=== PATIENT | female | born 1975 | race Asian ===

== ENCOUNTER 2017-01-13 21:37 | Emergency (ER) | payer MEDICAID ==
[~2017-01-13] VITALS: Ht 160 cm; Wt 71.3 kg
[2017-01-13 21:46] VITALS: BP 144/86
[2017-01-13] MEDS ORDERED: SERT100T5 PO (22:35)
[2017-01-13] MEDS ORDERED: TRAZ100T15 PO (22:35)
[2017-01-13] MEDS ORDERED: HYDROcodone/APAP 5/325 TABLET ONE (22:36)
[2017-01-13] MEDS ORDERED: HYDROcodone/APAP 5/325 TABLET PO PRN (23:00)
== END 2017-01-14 00:46 | disposition home or self-care (01) ==
LOC: ED 01-14 00:37
DX: S62.316A Displaced fracture of base of fifth metacarpal bone, right hand, initial encounter for closed fracture (principal); W51.XXXA Accidental striking against or bumped into by another person, initial encounter; Y93.89 Activity, other specified; Y92.89 Other specified places as the place of occurrence of the external cause; Y99.8 Other external cause status
CPT/HCPCS: 29125

== ENCOUNTER 2018-02-20 23:31 | Observation (INO) | payer MEDICAID ==
[~2018-02-20] VITALS: Ht 160 cm; Wt 77.4 kg
[~2018-02-20 23:31] MED LIST: SERT100T5 PO; TRAZ100T15 PO
[2018-02-21] MEDS ORDERED: KETOROLAC 30 MG/1 ML IVPush ONE
[2018-02-21] MEDS ORDERED: SODIUM CHLORIDE FLUSH 10ML SYR IVF ONE
[2018-02-21] MEDS ORDERED: MORPHINE SULFATE 4 MG/ML, 1ML IVPush PRN
[2018-02-21] MEDS ORDERED: PROMETHAZINE 25 MG/ML, 1ML IM ONE
[2018-02-21 00:03] LABS: ALANINE AMINOTRANSFERASE 15 U/L (12-78); ALBUMIN 3.7 g/dL (3.4-5.0); ANION GAP 10 mmol/L (5-15); CALCIUM 8.4 mg/dL (8.5-10.1); CHLORIDE 109 mmol/L (98-107)
[2018-02-21 00:08] LABS: ALKALINE PHOSPHATASE 59 U/L (45-117); BILIRUBIN,TOTAL 0.6 mg/dL (0.2-1.0); TOTAL PROTEIN 7.3 g/dL (6.4-8.2)
[2018-02-21 00:12] LABS: BASOPHILS # (AUTO) 0.05 x10^3/uL (0-0.1); BASOPHILS % (AUTO) 0 % (0-1); EOSINOPHILS # (AUTO) 0.01 x10^3/uL (0-0.4); EOSINOPHILS % (AUTO) 0 % (1-7); LYMPHOCYTES # (AUTO) 0.83 x10^3/uL (1-3.4); LYMPHOCYTES % (AUTO) 7 % (22-44); MD NO; MEAN CORPUSCULAR HEMOGLOBIN 24.5 pg (27.0-34.8); MEAN CORPUSCULAR HGB CONC 31.9 g/dL (32.4-35.8); MEAN CORPUSCULAR VOLUME 76.9 fL (80-100); MEAN PLATELET VOLUME 8.3 fL (7.4-10.4); MONOCYTES # (AUTO) 0.46 x10^3/uL (0.2-0.8); MONOCYTES % (AUTO) 4 % (2-9); NEUTROPHILS # (AUTO) 10.55 x10^3/uL (1.8-6.8); NEUTROPHILS % (AUTO) 89 % (42-75); PLATELET COUNT 379 x10^3/uL (130-400); RED BLOOD COUNT 4.68 x10^6/uL (3.82-5.3); RED CELL DISTRIBUTION WIDTH 16.7 % (9.6-15.2)
[2018-02-21] MEDS ORDERED: PROMETHAZINE 25 MG/ML, 1ML ONE (00:28)
[2018-02-21] MEDS ORDERED: KETOROLAC 30 MG/1 ML ONE ×2 (00:29→06:30)
[2018-02-21] MEDS ORDERED: OMNIPAQUE 350 MG/ML, 100ML BOTTLE ONE (02:29)
[2018-02-21] MEDS ORDERED: SODIUM CHLORIDE 0.9% 1,000ML IVBOLUS ONE (02:30)
[2018-02-21 02:49] LABS: MICROSCOPIC AUTO
[2018-02-21 02:56] LABS: CULTURE INDICATED? NO
[2018-02-21] MEDS ORDERED: CEFOTETAN PMX 1GM/50ML 50 ML IV ONE (03:00)
[2018-02-21] MEDS ORDERED: SODIUM CHLORIDE 0.9% 1,000 ML IV ONE (03:08)
[2018-02-21] MEDS ORDERED: SODIUM CHLORIDE FLUSH 10ML SYR IVF PRN (03:30)
[2018-02-21] MEDS ORDERED: HYDROmorphone 2 MG/ML, 1ML IVPush PRN (03:30)
[2018-02-21] MEDS ORDERED: ONDANSETRON 2MG/ML, 2ML IVPush PRN (03:30)
[2018-02-21] MEDS ORDERED: PROMETHAZINE 25 MG/ML, 1ML IM PRN (03:30)
[2018-02-21] MEDS ORDERED: BUPIVACAINE/PF 0.5% ONE (03:36)
[2018-02-21] MEDS ORDERED: CEFOTETAN PMX 1GM/50ML 50 ML ONE (03:37)
[2018-02-21] MEDS ORDERED: EPINEPHRINE 1 MG/ML, 1ML ONE (03:37)
[2018-02-21] MEDS ORDERED: TRAZ300T2 PO (03:45)
[2018-02-21] MEDS ORDERED: FLUO20CA19 PO (03:45)
[2018-02-21 04:34] VITALS: BP 132/69
[2018-02-21] MEDS ORDERED: MIDAZOLAM 1 MG/ML, 2ML ONE ×2 (05:57→06:46)
[2018-02-21] MEDS ORDERED: FENTANYL PF 100 MCG/2ML ONE (05:58)
[2018-02-21] MEDS ORDERED: BUPIVACAINE/PF-EPI 0.5% 1:200K IM ONE (06:21)
[2018-02-21] MEDS ORDERED: EPHEDRINE 50 MG/ML, 1ML IVPush PRN (06:30)
[2018-02-21] MEDS ORDERED: GLYCOPYRROLATE 0.2MG/1ML, 5ML ONE (06:30)
[2018-02-21] MEDS ORDERED: ROCURONIUM 10 MG/ML,10ML ONE (06:30)
[2018-02-21] MEDS ORDERED: LABETALOL 5MG/ML, 20ML IV PRN (06:30)
[2018-02-21] MEDS ORDERED: NEOSTIGMINE 1 MG/ML, 10ML ONE (06:30)
[2018-02-21] MEDS ORDERED: ONDANSETRON ODT 8 MG PO PRN (06:30)
[2018-02-21] MEDS ORDERED: HALOPERIDOL 5 MG/ML IV PRN (06:30)
[2018-02-21] MEDS ORDERED: HYDROmorphone 1 MG/ML, 1ML IV PRN (06:30)
[2018-02-21] MEDS ORDERED: HYDROcodone/APAP 7.5-325MG/15ML UDC PO PRN (06:30)
[2018-02-21] MEDS ORDERED: CEFOTETAN 2 GM ONE (06:30)
[2018-02-21] MEDS ORDERED: FENTANYL PF 100 MCG/2ML IV PRN (06:30)
[2018-02-21] MEDS ORDERED: PROPOFOL 10 MG/ML, 20ML ONE (06:30)
[2018-02-21] MEDS ORDERED: OXYcodone 5 MG/5 ML ORAL.SOL UDC PO PRN (06:30)
[2018-02-21] MEDS ORDERED: ALBUTEROL SULFATE 2.5 MG/3 ML NPPB PRN (06:30)
[2018-02-21] MEDS ORDERED: MEPERIDINE/PF 25MG/0.5ML IVPush PRN (06:30)
[2018-02-21] MEDS ORDERED: DEXAMETHASONE 4 MG/ML, 1ML ONE (06:30)
[2018-02-21] MEDS ORDERED: hydrALAzine 20 MG/ML, 1ML IV PRN (06:30)
[2018-02-21] MEDS ORDERED: ACETAMINOPHEN 325 MG TABLET PO PRN (06:30)
[2018-02-21] MEDS ORDERED: SUCCINYLCHOLINE 20 MG/ML, 10ML ONE (06:30)
[2018-02-21] MEDS ORDERED: PROMETHAZINE 25 MG/ML, 1ML IV PRN (06:30)
[2018-02-21] MEDS: MIDAZOLAM 1 MG/ML, 2ML IV PRN ×2 (06:35→06:50)
[2018-02-21] MEDS ORDERED: OXYcodone 5 MG/5 ML ORAL.SOL UDC ONE (06:46)
[2018-02-21 08:30] VITALS: BP 126/84
[2018-02-21] MEDS ORDERED: ACETAMINOPHEN 325 MG TABLET PO SCH (08:30)
[2018-02-21] MEDS ORDERED: ONDANSETRON 2MG/ML, 2ML IV PRN (08:30)
[2018-02-21] MEDS ORDERED: KETOROLAC 30 MG/1 ML IV PRN (08:30)
[2018-02-21] MEDS ORDERED: OXYcodone IR 5MG TABLET PO PRN (08:30)
[2018-02-21] MEDS ORDERED: ONDANSETRON ODT 4 MG PO PRN (08:30)
[2018-02-21] MEDS ORDERED: OXYC5CAP2 PO (10:56)
[2018-02-21] MEDS ORDERED: ONDA4TAB7 PO (10:57)
== END 2018-02-21 12:34 | disposition home or self-care (01) ==
LOC: ED 23:59 → EDIP 02-21 03:07 → INTOOBSV 02-21 03:07 → 4NOR 02-21 03:59 → DCLOUNGE 02-21 12:25
PROVIDERS: ADMIT Surgery; ATTEND Surgery
DX: K35.3 Acute appendicitis with localized peritonitis (principal); F32.9 Major depressive disorder, single episode, unspecified; F41.9 Anxiety disorder, unspecified; F17.210 Nicotine dependence, cigarettes, uncomplicated; N83.201 Unspecified ovarian cyst, right side
CPT/HCPCS: 36415; 44970; 74177; 76830; 80053; 81001; 83690; 84703; 85025; 88304; 96365; 96375; 96376; 99285; G0378; J0171; J0330; J1100; J1885; J2250; J2704; J2710; J3010; J3490; J7030; Q9967; S0074

== ENCOUNTER 2018-03-02 10:10 | Observation (INO) | payer MEDICAID ==
[~2018-03-02] VITALS: Ht 165.1 cm; Wt 63.7 kg
[~2018-03-02 10:10] MED LIST changes: +FLUO20CA19 PO; +ONDA4TAB7 PO; +OXYC5CAP2 PO; +TRAZ300T2 PO
[2018-03-02 13:02] LABS: BASOPHILS # (AUTO) 0.04 x10^3/uL (0-0.1); BASOPHILS % (AUTO) 1 % (0-1); EOSINOPHILS # (AUTO) 0.15 x10^3/uL (0-0.4); EOSINOPHILS % (AUTO) 3 % (1-7); LYMPHOCYTES # (AUTO) 1.16 x10^3/uL (1-3.4); LYMPHOCYTES % (AUTO) 24 % (22-44); MD NO; MEAN CORPUSCULAR HEMOGLOBIN 24.4 pg (27.0-34.8); MEAN CORPUSCULAR HGB CONC 31.6 g/dL (32.4-35.8); MEAN CORPUSCULAR VOLUME 77.2 fL (80-100); MEAN PLATELET VOLUME 8.1 fL (7.4-10.4); MONOCYTES # (AUTO) 0.32 x10^3/uL (0.2-0.8); MONOCYTES % (AUTO) 7 % (2-9); NEUTROPHILS # (AUTO) 3.26 x10^3/uL (1.8-6.8); NEUTROPHILS % (AUTO) 66 % (42-75); PLATELET COUNT 350 x10^3/uL (130-400); RED BLOOD COUNT 4.44 x10^6/uL (3.82-5.3); RED CELL DISTRIBUTION WIDTH 17.1 % (9.6-15.2)
[2018-03-02 13:13] LABS: ALBUMIN 3.6 g/dL (3.4-5.0); ANION GAP 9 mmol/L (5-15); CALCIUM 7.9 mg/dL (8.5-10.1); CHLORIDE 116 mmol/L (98-107); SALICYLATE LEVEL 2.3 mg/dL (2.8-20.0)
[2018-03-02 13:17] LABS: ALANINE AMINOTRANSFERASE 14 U/L (12-78); ALKALINE PHOSPHATASE 54 U/L (45-117); BILIRUBIN,TOTAL 0.2 mg/dL (0.2-1.0); CREATININE 0.65 mg/dL (0.55-1.02); TOTAL PROTEIN 6.9 g/dL (6.4-8.2)
[2018-03-02 13:22] LABS: ACETAMINOPHEN < 2 mcg/mL (10-30)
[2018-03-02 19:50] LABS: HCG UR SG 1.019 (1.003-1.030)
[2018-03-02 19:53] LABS: AMPHETAMINE SCREEN, URINE Negative (Negative); BARBITURATE SCREEN, URINE Negative (Negative); BENZODIAZEPINE SCREEN, URINE Negative (Negative); CANNABINOID SCREEN, URINE Negative (Negative); COCAINE SCREEN, URINE Negative (Negative); METHADONE SCREEN, URINE Negative (Negative); OPIATE SCREEN, URINE Negative (Negative)
[2018-03-02] MEDS ORDERED: POLYETHYLENE GLYCOL 17 GM PACKET PO PRN (23:30)
[2018-03-02] MEDS ORDERED: DOCUSATE 100 MG CAPSULE PO PRN (23:30)
[2018-03-02] MEDS ORDERED: ONDANSETRON ODT 4 MG PO PRN (23:30)
[2018-03-02] MEDS ORDERED: ACETAMINOPHEN 325 MG TABLET PO PRN (23:30)
[2018-03-02] MEDS ORDERED: BISACODYL 10 MG SUPP PR PRN (23:30)
[2018-03-03 07:48] VITALS: BP 101/65
[2018-03-03] MEDS ORDERED: FLUOXETINE HCL 20 MG CAPSULE PO SCH (09:00)
== END 2018-03-03 17:15 ==
LOC: ED 12:38 → EDIP 22:26 → 3E 03-03 00:49
PROVIDERS: ADMIT Family Medicine; ATTEND Family Medicine
DX: T43.212A Poisoning by selective serotonin and norepinephrine reuptake inhibitors, intentional self-harm, initial encounter (principal); F32.9 Major depressive disorder, single episode, unspecified; F41.9 Anxiety disorder, unspecified; D64.9 Anemia, unspecified; F10.129 Alcohol abuse with intoxication, unspecified; F17.210 Nicotine dependence, cigarettes, uncomplicated; Y92.89 Other specified places as the place of occurrence of the external cause
CPT/HCPCS: 36415; 80053; 80307; 80329; 81025; 85025; 99285; G0378; G0480